=== PATIENT | female | born 1970 | race African-American/Black ===

== ENCOUNTER 2020-09-29 05:27 | Inpatient (IN) ==
[2020-09-22 15:13] LABS: Bacteria,Urine Occasional /HPF (Few); Bilirubin,Urine Negative (Negative); Blood, Urine Negative (Negative); Glucose,Urine (UA) Negative (Negative); Hyaline Casts,Urine 5 /LPF (0-3); Ketones,Urine Negative (Negative); Mucus,Urine Occasional /LPF (Occasional); Nitrite,Urine Negative (Negative); Protein,Urine Negative; RBC,Urine 1 /HPF (0-4); Squamous Epithelial Cell,Urine Occasional /HPF (0-10); Urine Appearance CLEAR (Clear); Urine Color Yellow (Yellow); Urine Specific Gravity 1.017 (1.001-1.035); Urine Urobilinogen < 2.0 EU/DL (0.2-1.0); WBC,Urine 1 /HPF (0-6)
[2020-09-22 16:15] LABS: Basophils # 0.1 10*3/uL (0.0-0.2); Basophils % 0.8 % (0.0-0.8); Eosinophils # 0.1 10*3/uL (0.0-0.87); Eosinophils % 1.4 % (0.00-10.9); Hemoglobin 10.8 GM/DL (12.0-16.0); Immature Granulocytes % 0.3 %; Immature Granulocytes Absolute 0.02 #; Lymphocytes # 2.2 10*3/uL (1.4-4.0); Lymphocytes % 28.2 % (21.3-54.2); Mean Corpuscular HGB Conc 32.7 GM/DL (32-36); Mean Corpuscular Volume 67.6 FL (87-102); Mean Platelet Volume 9.5 FL (9.6-12.0); Monocytes % 8.8 % (1.7-12.7); Neutrophils % 60.5 % (38.7-73.9); Platelet Count 568 T/CUMM (130-400); Red Blood Count 4.88 MC/CUMM (3.8-5.5); Red Cell Distribution Width 15.7 % (9.3-17.3); White Blood Count 7.9 T/CUMM (4-12)
[2020-09-22 16:33] LABS: Calcium 9.8 MG/DL (8.5-10.1); Osmolality,Calculated 274.8 MOS/KG (273-304); Potassium 3.7 MMOL/L (3.5-5.1)
[2020-09-22 16:36] LABS: PT Patient Result 10.5 SECS (9.8-11.9); Partial Thromboplastin Time 27.2 SECS (23.9-33.8)
[2020-09-29] MEDS ORDERED: amLODIPine 5 MG TABLET ONE (07:01)
[2020-09-29] MEDS ORDERED: amLODIPine 5 MG TABLET PO STA (07:13)
[2020-09-29] MEDS ORDERED: FAMOTIDINE 20 MG TABLET PO ONE (07:29)
[2020-09-29] MEDS ORDERED: GABAPENTIN 400 MG CAPSULE PO ONE (07:29)
[2020-09-29] MEDS ORDERED: DIAZEPAM 5 MG TABLET PO ONE (07:29)
[2020-09-29] MEDS ORDERED: ACETAMINOPHEN 500 MG TABLET PO ONE (07:29)
[2020-09-29] MEDS ORDERED: LACTATED RINGERS 1,000 ML IV SCH ×2 (07:30→12:30)
[2020-09-29] MEDS ORDERED: DEXAMETHASONE 4 MG/1 ML VIAL ONE ×2 (08:47→10:07)
[2020-09-29] MEDS ORDERED: ROPIVACAINE 0.5% 30 ML VIAL ONE (08:47)
[2020-09-29] MEDS ORDERED: fentaNYL 100 MCG/2 ML VIAL ONE ×2 (08:47→10:25)
[2020-09-29] MEDS ORDERED: LIDOCAINE 1% 5 ML VIAL ONE (08:47)
[2020-09-29] MEDS ORDERED: MIDAZOLAM 2 MG/2 ML VIAL ONE (08:47)
[2020-09-29] MEDS ORDERED: INDIGO CARMINE 5 ML AMP ONE (09:21)
[2020-09-29] MEDS ORDERED: propofoL 200 MG/20 ML VIAL IV ONE (09:33)
[2020-09-29] MEDS ORDERED: LIDOCAINE 2% 5 ML VIAL ONE (09:33)
[2020-09-29] MEDS ORDERED: ROCURONIUM 50 MG/5 ML VIAL IV ONE (09:33)
[2020-09-29] MEDS ORDERED: ONDANSETRON 4 MG/2 ML VIAL ONE (10:07)
[2020-09-29] MEDS ORDERED: SEVOFLURANE 1 UNIT/15 MINUTE INH ONE ×9 (10:07→12:26)
[2020-09-29] MEDS ORDERED: PHENYLEPHRINE 1 MG/10 ML SYRINGE IV ONE (10:19)
[2020-09-29] MEDS ORDERED: ePHEDrine 50 MG/ML VIAL ONE (10:47)
[2020-09-29] MEDS ORDERED: KETOROLAC 30 MG/1 ML VIAL ONE (11:32)
[2020-09-29] MEDS ORDERED: GLYCOPYRROLATE 0.4 MG/2 ML VIAL ONE (11:37)
[2020-09-29] MEDS ORDERED: NEOSTIGMINE 10 MG/10 ML VIAL ONE (11:37)
[2020-09-29] MEDS ORDERED: MAGNESIUM HYDROXIDE SUSP 30 ML UDCUP PO PRN (12:23)
[2020-09-29] MEDS ORDERED: ONDANSETRON 4 MG/2 ML VIAL IV PRN (12:23)
[2020-09-29] MEDS ORDERED: BISACODYL 10 MG SUPP RECTAL PRN (12:23)
[2020-09-29] MEDS ORDERED: IBUPROFEN 800 MG TABLET PO PRN (12:23)
[2020-09-29] MEDS ORDERED: BENZOCAINE/MENTHOL LOZENGE 18/BOX PO PRN (12:23)
[2020-09-29] MEDS ORDERED: ACETAMINOPHEN 325 MG TABLET PO PRN (12:23)
[2020-09-29 12:42] LABS: Bilirubin,Urine Negative (Negative); Blood, Urine Negative (Negative); Glucose,Urine (UA) Negative (Negative); Ketones,Urine Negative (Negative); Mucus,Urine Occasional /LPF (Occasional); Nitrite,Urine Negative (Negative); Protein,Urine Negative; Squamous Epithelial Cell,Urine Occasional /HPF (0-10); Urine Appearance CLEAR (Clear); Urine Color Straw (Yellow); Urine Specific Gravity 1.005 (1.001-1.035); Urine Urobilinogen < 2.0 EU/DL (0.2-1.0)
[2020-09-29] MEDS: KETOROLAC 30 MG/1 ML VIAL IV PRN ×2 (17:46→23:51)
[2020-09-30 04:38] LABS: Basophils % 0.1 % (0.0-0.8); Hematocrit 30.2 VOL% (35.7-47.0); Hemoglobin 9.9 GM/DL (12.0-16.0); Immature Granulocytes % 0.7 %; Immature Granulocytes Absolute 0.16 #; Lymphocytes # 1.7 10*3/uL (1.4-4.0); Mean Corpuscular HGB Conc 32.8 GM/DL (32-36); Mean Corpuscular Volume 67.4 FL (87-102); Mean Platelet Volume 9.2 FL (9.6-12.0); Monocytes % 12.2 % (1.7-12.7); Platelet Count 414 T/CUMM (130-400); Red Blood Count 4.48 MC/CUMM (3.8-5.5); Red Cell Distribution Width 15.6 % (9.3-17.3); White Blood Count 24.5 T/CUMM (4-12)
[2020-09-30 05:04] LABS: Hypochromasia 1+; Lymphocytes 8 % (20-55); Microcytosis 1+; Platelet Estimate Adequate; Segmented Neutrophils 83 % (50-85); Total Cells Counted 100
[2020-09-30] MEDS: DOCUSATE SODIUM 100 MG CAPSULE PO PRN ×2 (08:11→21:11)
[2020-09-30] MEDS: METOCLOPRAMIDE 10 MG TABLET PO SCH ×2 (08:11→16:39)
[2020-09-30] MEDS: KETOROLAC 30 MG/1 ML VIAL IV PRN (08:14)
[2020-09-30] MEDS: IRON (CARBONYL)/VIT C/B12/FA TABLET PO SCH (09:10)
[2020-09-30] MEDS ORDERED: SIMETHICONE CHEW 80 MG TABLET PO PRN (12:41)
[2020-10-01] MEDS: METOCLOPRAMIDE 10 MG TABLET PO SCH ×2 (00:40→08:21)
[2020-10-01 07:35] VITALS: BP 145/82
[2020-10-01] MEDS: IRON (CARBONYL)/VIT C/B12/FA TABLET PO SCH (08:21)
[2020-10-01] MEDS: DOCUSATE SODIUM 100 MG CAPSULE PO PRN (08:21)
[2020-10-01] MEDS ORDERED: LISINOPRIL/HCTZ 20-25 MG TABLET PO SCH (13:00)
[2020-10-01] MEDS ORDERED: amLODIPine 5 MG TABLET PO SCH (13:00)
== END 2020-10-01 13:20 | disposition home or self-care (01) | DRG 743 ==
LOC: N.OR 05:27 → N.SDSINP 05:31 → N.OB 10:15 → EDSTATUS 11:00 → N.OB 12:23
PROVIDERS: ADMIT Specialist; ATTEND Specialist